=== PATIENT | female | born 1955 | race Caucasian/White ===

== ENCOUNTER 2018-08-27 06:05 | Day surgery (SDC) | payer MEDICARE, BC ==
[2018-08-27] MEDS ORDERED: ONDANSETRON HCL IV 4 MG/2 ML VIAL IVP ONE (06:06)
[2018-08-27] MEDS ORDERED: LIDOCAINE 2% MDV (20MG/ML) 20ML VIAL IV ONE (06:06)
[2018-08-27] MEDS ORDERED: PROPOFOL 10 MG/ML VIAL IV ONE (06:06)
[2018-08-27] MEDS ORDERED: GLYCOPYRROLATE 0.2 MG/ML ML IV ONE (06:06)
--- NOTE | 2018-08-30 08:11 | Operative Note ---
SURGEON: Jodie Moreno MD OPERATION: COLONOSCOPY. INDICATIONS: This is a 62-year-old female with history of colon polyps with history of diverticulitis who presented for repeat colonoscopy. Last colonoscopy was about 5 years ago. POSTOPERATIVE DIAGNOSES: 1. Left-sided colonic diverticulosis. 2. Two 2-3 mm sessile polyps in the rectum that were removed by cold biopsy forceps. ANESTHESIA: Sedation is per Anesthesia. Pulse oximetry was monitored throughout the procedure to maintain O2 saturation of 90% or greater. Supplemental oxygen was administered via nasal cannula. Cardiac and vital signs were monitored throughout the duration of the procedure, and they were stable. The procedure of colonoscopy and risks and alternatives of the procedure, including the risk of bleeding and perforation, among others, were explained to the patient who voiced understanding and agreed to have the procedure done. Physical examination was performed, and the patient was found stable for sedation. PROCEDURE: The patient was placed in the left lateral position. Sedation was initiated. A digital rectal exam was performed and showed some mild external hemorrhoids with no palpable rectal masses. An Olympus PCF-180AL colonoscope was then inserted into the rectum upon introduction ot he colonoscope. This was advanced to the cecum without any difficulty. The ileocecal valve and appendiceal orifice were identified and photographed. The colonic mucosa was carefully examined upon introduction of the colonoscope. There were multiple diverticula noted in the sigmoid and descending colon. The ileocecal valve was intubated and terminal ileal mucosa was inspected for about 10 cm and it was normal. The colonoscope was then withdrawn while carefully examining the colonic mucosal surfaces. No other lesions were noted. In the rectum, two 2-3 mm sessile polyps were noted and they were removed by cold biopsy forceps. There were no other lesions noted. The colonoscope was then withdrawn and the procedure was terminated. The patient tolerated the procedure well without any immediate complications. The patient remained with stable vital signs and was transferred to the recovery room. RECOMMENDATIONS: 1. The patient should be on a high-fiber diet. 2. The patient is to have a repeat colonoscopy for surveillance in 5 or 10 years depending on the histology of the polyps. Thank you for allowing me to participate in the care of your patient. CC: Kaya PARADA
== END 2018-08-27 08:32 | disposition home or self-care (01) ==
LOC: HOP 06:05
PROVIDERS: ATTEND Internal Medicine Gastroenterology
DX: Z12.11 Encounter for screening for malignant neoplasm of colon (principal); Z86.010 Personal history of colon polyps; Z87.19 Personal history of other diseases of the digestive system; K62.1 Rectal polyp; I10 Essential (primary) hypertension; G25.81 Restless legs syndrome
CPT/HCPCS: J2405